=== PATIENT | male | born 1980 | race Caucasian/White ===

== ENCOUNTER 2021-06-26 17:42 | Emergency (ER) | payer BC, SELFPAY ==
--- NOTE | ~2021-06-26 | XR_ITS ---
EXAMINATION: XR TIBIA AND FIBULA, RIGHT CLINICAL INFORMATION: Laceration assess for foreign body COMPARISON: None TECHNIQUE: AP and lateral views of the right tibia and fibula were obtained. FINDINGS: Soft tissue defect seen along the posterior aspect of the proximal calf. I do not appreciate any radiopaque foreign body in this region. Underlying bony structures are unremarkable with no acute fracture or dislocation. XR/XR tibia fibula RT 2V IMPRESSION: Soft tissue defect posteriorly but no radiopaque foreign body seen.
[2021-06-26 17:56] VITALS: BP 116/65; PULSE 87; RESP 16; TEMP 37.4; O2SAT 100; BMI 22.1
[2021-06-26 18:02] VITALS: BP 152/100; PULSE 93; O2SAT 97
--- NOTE | 2021-06-26 18:08 | ED.WOUNDLAC ---
HPI - Wound/Laceration General Chief Complaint: Wound/Laceration Stated Complaint: RLL LAC Time Seen by Provider: 06/26/21 18:02 Source: patient Mode of arrival: ambulatory Limitations: no limitations History of Present Illness HPI narrative: 41-year-old male presents to ED for right posterior calf laceration caused by beam while taking out trash. Patient states it was not a through and through puncture. Patient states just walked by and cut his leg caused a deep gash. Patient able to move lower extremity. Patient able to flex and extend knee. Patient has feeling in extremities. Patient unaware of last tetanus laceration. Related Data Previous Rx's Medication Instructions Recorded cephalexin 500 mg capsule 500 mg PO QID 7 Days #28 cap 06/26/21 naproxen 500 mg tablet 500 mg PO BID PRN 10 Days #20 tab 06/26/21 Allergies Allergy/AdvReac Type Severity Reaction Status Date / Time doxycycline AdvReac Gastrointestinal Verified 06/26/21 18:26 Upset Review of Systems Review of Systems: Right posterior leg laceration Yes all other systems are reviewed and are negative FORMERLY [facility], [facility]–1983 Past Medical History Medical History (Updated 06/27/21 @ 00:02 by Background Daemon) No known health problems Social History Social History Advance Directives: No Advance Directives Information Provided: No Physical Exam Vital Signs: Vital Signs: Last Vital Signs Temp 97.8 F 06/26/21 21:38 Pulse 83 06/26/21 21:38 Resp 16 06/26/21 21:38 BP 135/82 06/26/21 21:38 Pulse Ox 98 06/26/21 21:38 BMI result Body Mass Index 22.1 Const: General: cooperative, healthy appearing, comfortable, no acute distress, well developed, alert, awake and Physically active Orientation/consciousness: patient oriented x3 HEENT: Head: Yes normal to inspection, Yes No palpable skull fracture present, Yes normocephalic, Yes atraumatic and No abrasion Eyes: General: appearance normal, both eyes and all related structures Neck: Neck: Yes normal visual inspection, Yes full ROM, Yes no lymphadenopathy, Yes no meningeal signs, Yes trachea midline, Yes supple, No anterior neck swelling and No tender Chest: Chest palpation & inspection: normal inspection of the chest and normal palpation of entire chest wall Resp: Effort & Inspection: normal respiratory effort and able to speak in complete sentences Auscultation: clear to auscultation bilaterally Cardio: Jugular venous distension: no JVD Heart sounds: S1 normal heart sound present and S2 normal heart sound present GI: Inspection: Yes normal to inspection and No abdominal wall ecchymosis Palpation (GI): Soft to palpation, not firm, nontender, no guarding and not rigid : General: No CVA tenderness and Yes no CVA tenderness Back/Spine/Pelvis: Back: no CVA tenderness, No CVA tenderness and No back tenderness Skin: General skin exam: no rashes or lesions noted and elasticity normal Trauma: laceration (right leg posterior) Neuro: General: patient oriented x3, gait normal, tone normal, moves all extremities and no meningeal signs Cranial nerves: Yes CN's II-XII intact bilaterally Extrem: Other: RIght Posterior leg: Wide laceration. Negative for any tendon or ligament exposure. No squirting bleeding. Bleeding is controlled. Not Concern for vascular injury. Patient able to flex and extend knee and move rest of lower extremity. Popliteal and pedal pulses intact. Vascular/motor/neuro exam in attack of right lower extremity. General: Yes normal to inspection and Yes full ROM Psych: Appearance: grossly normal, well kempt and not disheveled Course Course Course Narrative: Laceration will do x-ray from possible foreign body. Tdap and Toradol ordered. Reevaluation(s) Reevaluation #1: Spoke with surgeon on-call Dr. Hearn who states laceration could be repaired. Lidocaine with epi ordered. Time: 18:23 Reevaluation #2: Wound cleaned with sterile saline and Betadine iodine. Lidocaine with epi was used. Nylon size 3 sutures was used for laceration repair. Two vertical mattress sutures were placed. Ten simple sutures were placed. X-ray negative for any foreign body. patietn discharge with antibiotics Time: 21:27 MDM - Wound/Laceration MDM Narrative Medical decision making narrative: Laceration Discharge Plan Discharge Clinical Impression: Laceration Patient Disposition: Home, Self-Care Instructions: Laceration (ED) Additional Instructions: Sutures will need to be in place for at least 11 days. You will be discharged with antibiotics. Return to the ED immediately for any swelling, bluish black discoloration, redness, red streaks, fever, chills, pus discharge, foul odor, coolness of lower extremity, hardness of lower extremity, chest pain, shortness of breath, numbness, tingling, paralysis of extremities or any other concerning symptoms. Prescriptions: New cephalexin 500 mg capsule 500 mg PO QID 7 Days Qty: 28 0RF naproxen 500 mg tablet 500 mg PO BID PRN (Reason: pain) 10 Days Qty: 20 0RF Referrals: Kelton Hearn MD [Physician] - (Complicated right calf laceration repair. Motor/neuro/vascular exam intact.) Stand Alone Forms: Work/School Release Interventions: ED Discharge Assessment Last Done: 06/26/21 21:42 Discharge Date/Time: 06/26/21 21:44 Print Language: Uruguayan
[2021-06-26] MEDS: Ketorolac Tromethamine 30 MG/ML VIAL IM (18:21)
[2021-06-26] MEDS: Diphth,Pertus(ACell),Tet Adult 0.5 ML SYRINGE IM (18:57)
[2021-06-26 21:38] VITALS: BP 135/82; PULSE 83; RESP 16; TEMP 36.6; O2SAT 98
== END 2021-06-26 21:44 | disposition home or self-care (01) ==
PROVIDERS: Emergency Provider Emergency Medicine
DX: S81.811A Laceration without foreign body, right lower leg, initial encounter (principal); S80.811A Abrasion, right lower leg, initial encounter; M79.604 Pain in right leg; W26.9XXA Contact with unspecified sharp object(s), initial encounter; Y93.9 Activity, unspecified; Y92.009 Unspecified place in unspecified non-institutional (private) residence as the place of occurrence of the external cause; Y99.9 Unspecified external cause status; Z79.899 Other long term (current) drug therapy
CPT/HCPCS: 12001; 73590; 90471; 90715; 96372; 99284; J1885

== ENCOUNTER → 2021-07-11 13:02 | Outpatient (BNVA) | payer BC, SELFPAY | PROVIDERS: Visit Provider Surgery | DX: Z13.89 Encounter for screening for other disorder (principal) ==

== ENCOUNTER → 2021-08-08 11:05 | Outpatient (BNVA) | payer BC, SELFPAY | PROVIDERS: Visit Provider Surgery | DX: Z13.89 Encounter for screening for other disorder (principal) ==

== ENCOUNTER 2021-11-07 16:00 | Outpatient (REF) | payer BC, SELFPAY ==
[2021-11-07 17:01] LABS: Hematocrit 43.9 % (42.0-52.0); Hemoglobin 14.4 g/dl (14.0-18.0); Mean Corpuscular HGB Conc 32.8 g/dl (31.0-36.0); Mean Corpuscular Hemoglobin 27.5 pg (27.0-33.0); Mean Corpuscular Volume 83.8 fL (80.0-98.0); Mean Platelet Volume 9.7 fL (9.4-12.4); Platelet Count 324 X10*3/uL (160-400); Red Blood Count 5.24 X10*6/uL (4.60-5.80); Red Cell Distribution Width 12.8 % (11.0-16.0); White Blood Count 7.4 X10*3/uL (4.8-10.8)
[2021-11-07 17:36] LABS: Alanine Aminotransferase 23 U/L (0-40); Alkaline Phosphatase 54 U/L (39-117); Anion Gap 17 (12-20); Aspartate Amino Transferase 29 U/L (5-37); Blood Urea Nitrogen 22 mg/dL (9-16); Calcium 9.8 mg/dL (8.4-10.2); Carbon Dioxide 25 mmol/L (22-29); Chloride 102 mmol/L (96-108); Cholesterol 195 mg/dL; Estimated Glomerular Filt Rate > 60; Glucose Fasting 82 mg/dL (60-99); HDL Cholesterol 83 mg/dL; LDL Cholesterol Calculated 103 mg/dl; Potassium 4.2 mmol/L (3.3-5.1); Sodium 140 mmol/L (135-145); Total Protein 8.1 g/dL (6.5-8.0); Triglycerides 47 mg/dL
[2021-11-07 17:54] LABS: TSH reflex Free T4 2.46 uIU/mL (0.32-4.0)
== END 2021-11-07 16:01 | disposition home or self-care (01) ==
LOC: HO.LAB 16:00
PROVIDERS: PCP Hospitalist; Visit Provider Hospitalist
DX: Z00.00 Encounter for general adult medical examination without abnormal findings (principal)
CPT/HCPCS: 36415; 80053; 80061; 84443; 85027

== ENCOUNTER 2022-09-23 16:23 | Outpatient (AMB) | payer BC, SELFPAY ==
[2022-09-23 16:39] VITALS: BP 110/64; PULSE 59; RESP 12; TEMP 37.1; O2SAT 99; BMI 22.5
--- NOTE | 2022-09-23 16:39 | MHC.PC.OV ---
Vital Signs 09/23/22 16:39 Height 5 ft 9 in Weight 152 lb 8 oz BMI 22.5 BP 110/64 Blood Pressure Location Lt brachial Position Sitting Respiration 12 Pulse 59 Pulse Source Pulse Oximeter Temp 98.8 F Temp Source Temporal Artery Scan Pulse Oximetry (%) 99 Oxygen Delivery Method Room Air Intake Visit Reasons: 09/09/22 , Severe Heat Exhaustion /[place] Intake Note: Patient states he was in ER due to him being outside in excessive heat. Patient states that while he was at work working outside he noticed that he couldn't catch his breath and a coworker had to call the ambulance. Patient states that he had a EKG done and everything looked good and was told that it was severe heat exhaustion. Patient states that he ended up going to work the following Thursday and had severe cramping as well as difficulty getting through daily tasks. Patient states that he has been having spasms that stiffen his legs and hands thought the day and patient states he would have to pry his hands and relax in order for spasms to stop. Patient has been experiencing chest pains as well as him stating that he feels his heart skip a beat. Allergist/Immunologist Physician Required: No Accompanied by: Self / Same As Patient Allergies doxycycline Adverse Reaction (Verified 09/23/22 17:14) Gastrointestinal Upset Medication List - Last Reconciled 09/23/22 by Farnaz Kwan CNP No Known Home Meds Tobacco use date assessed: 09/23/22 Dental Screening Dental Screen Date: 09/23/22 Did you have a dental visit in the last 12 months?: Yes Did you have a dental problem in the last 6 months where you did not have access to dental care?: No Was dental information given to patient?: Patient has dentist HPI HPI Comments History of Present Illness Details 42-year-old male presents for a follow-up visit. 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 He was diagnosed with heat exhaustion. Labs and EKG were unremarkable. He was discharged home. He notes that since his discharged ED, he has been experiencing intermittent cramps to his hands and legs which makes it difficult to perform daily tasks and his work duties. He states that the cramps on his hands his sometimes so severe that he is unable to make complete fist. He admits to hydrating well with water. 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 Cognitive needs: No Hearing needs: No Vision needs: No Review of Systems Const Details: Const Denies chills, Denies fatigue, Denies fever(s), Denies headache(s) and Denies weakness ENT Denies change in vision, Denies dizziness, Denies headache(s), Denies hearing loss, Denies nasal congestion, Denies sinus pain, Denies sinus pressure and Denies sore throat Resp Denies cough, Denies dyspnea, Denies wheezing and Denies other (shortness of breath) Cardio Denies chest pain, Denies lightheadedness, Denies dyspnea and Denies other (palpitations) Neuro Denies dizziness, Denies headache(s), Denies numbness, Denies tingling and Denies weakness Musc Reports as per HPI Endo Denies fatigue Aller/Immun Denies wheezing Physical exam (Primary Care) Vital Signs: Last Vital Signs Temp 98.8 F 09/23/22 16:39 Pulse 59 09/23/22 16:39 Resp 12 09/23/22 16:39 BP 110/64 09/23/22 16:39 Pulse Ox 99 09/23/22 16:39 Oxygen Delivery Method Room Air 09/23/22 16:39 BMI result Body Mass Index 22.5 Tobacco/Smoking Status: Tobacco use Status Tobacco use date assessed 09/23/22 09/23/22 16:58 Patient Tobacco Use Status Never used Tobacco 09/23/22 16:58 e-Cigarette/Vaping Use Never Used 09/23/22 16:58 Const Other: Const General: well developed; No acute distress Nutritional Appearance: well nourished Orientation/consciousness: patient oriented x3 HEENT Head: Yes normocephalic and Yes atraumatic Eyes General: appearance normal, both eyes and all related structures Pupils: Equal, round and reactive pupils present EOM: EOMs intact bilaterally Resp Effort & Inspection: normal respiratory effort Auscultation: clear to auscultation bilaterally Cardio Rate: regular rate Rhythm: regular rhythm Heart sounds: S1 normal heart sound present, S2 normal heart sound present, no gallops, no murmurs and no rubs Bruits: no abdominal aortic bruits and no carotid bruits Back/Spine/Pelvis Back: no CVA tenderness Cervical Spine: cervical ROM normal and No Cervical spine tenderness Thoracic/Lumbar Spine: thoraco-lumbar ROM normal, No pain with thoraco-lumbar ROM, No thoracic spinal tenderness and No lumbar spinal tenderness Extrem General: Yes normal to inspection, No edema and No calf tenderness Neuro General: patient oriented x3 and gait normal, no focal neuro deficit Cranial nerves: Yes Equal, round and reactive pupils present Psych Affect: normal affect Assessment and Plan Assessment & Plan (1) Cramps, extremity: Code(s): R25.2 - Cramp and spasm Plan: He states that he has been experiencing intermittent cramps to his hands and legs which makes it difficult to perform daily tasks and his work duties. He states that the cramps on his hands his sometimes so severe that he is unable to make complete fist. Recent BMP at [facility] was unremarkable His symptoms may or may not be related to dehydration Adequate hydration encouraged Stretching and routine exercise, including cardio encouraged Cyclobenzaprine ordered. Take as prescribed May take magnesium daily Follow-up with worsening or new symptoms Verbalized understanding and agreed with treatment plan. Medications: New cyclobenzaprine 10 mg PO BID PRN 60 tabs 0RF muscle spasm Coding Level of Care Code Est Pt Level 4 (66637) Diagnoses Cramps, extremity R25.2 Time Spent (min) 35
== END 2022-09-23 17:38 | disposition home or self-care (01) ==
PROVIDERS: PCP Hospitalist; Visit Provider Nurse Practitioner Family
DX: R25.2 Cramp and spasm (principal)
CPT/HCPCS: 99214